=== PATIENT | male | born 1985 | race African-American/Black ===

== ENCOUNTER 2017-02-09 16:08 | Emergency (ER) | payer SELFPAY | END 2017-02-09 18:50 | disposition home or self-care (01) | LOC: ER 16:08 | DX: K02.9 Dental caries, unspecified (principal); K21.9 Gastro-esophageal reflux disease without esophagitis; F17.200 Nicotine dependence, unspecified, uncomplicated; Z88.5 Allergy status to narcotic agent; Z88.6 Allergy status to analgesic agent; Z88.8 Allergy status to other drugs, medicaments and biological substances | CPT/HCPCS: 99283 ==